=== PATIENT | female | born 1995 | race Caucasian/White ===

== ENCOUNTER 2024-03-21 07:12 | Outpatient (OUT) | payer MEDICAID, SELFPAY | END 2024-03-21 07:13 | disposition home or self-care (01) | LOC: PST 07:12 | PROVIDERS: Visit Provider Surgery | DX: Z01.818 Encounter for other preprocedural examination (principal); Z12.11 Encounter for screening for malignant neoplasm of colon ==

== ENCOUNTER 2024-03-29 06:53 | Day surgery (SDC) | payer MEDICAID, SELFPAY ==
--- OUTSIDE RECORDS SUMMARY | 2024-03-29 06:56 | XMS_ITS | CCD ---
Author Organization [facility] Care Team Providers Care Engineering Instructor Name Role Phone Ofelia Cosby Primary Care Provider HARJEET, DR BENSON Primary Care Unavailable WALTER, DR ROBLES Attending Unavailable WALTER, DR ROBLES Consulting Unavailable WALTER, DR ROBLES Admitting Unavailable HARJEET, DR BENSON Referring Unavailable MILDRED DONALDSON Consulting Unavailable PROSPER PHAM Admitting Unavailable HARJEET, DR BENSON Primary Care Unavailable PROSPER PHAM Attending Unavailable PROSPER PHAM Consulting Unavailable Ofelia Cosby MD Primary Care Provider [phone] Ofelia Cosby MD Primary Care Provider TAMIA WADDELL Attending Unavailable OFELIA COSBY Primary Care Unavailable OFELIA COSBY Primary Care Unavailable SIDNEY MORFIN Attending Unavailable MANUEL COX Attending Unavailab OFELIA Miguel Primary Care Unavailable OFELIA COSBY Attending Unavailable PROSPER PHAM Attending Unavailable PROSPER PHAM Attending Unavailable JULIA KELLY Attending Unavailable Allergies Allergy Classification Reported Allergen(s) Allergy Type Date of Onset Reaction(s) Facility Penicillins (antibiotic) (2 sources) Amoxicillin Drug Allergy 3 [facility] (4 sources) Amoxicillin Drug Allergy 3 [place] (2 sources) Penicillins Propensity to adverse reactions to drug 3 [place] (1 source) Amoxicillin Drug Allergy 3 [facility] (1 source) Amoxicillin / Clavulanate Drug Allergy 3 [facility] (1 source) Penicillins Drug allergy (disorder) 3 [facility] (2 sources) Penicillins Propensity to adverse reactions to drug 3 [facility] [employer] Work Phone: (1 source) Amoxicillin-Pot Clavulanate Propensity to adverse reactions to drug 3 [facility] Medications Current Medications Medication Drug Class(es) Dates Sig (Normalized) Sig (Original) escitalopram 20 mg oral tablet (2 sources) Serotonin Reuptake Inhibitor take 1 tablet by mouth once daily escitalopram (LEXAPRO) 20 MG tablet Take 1 tablet by mouth daily 0 Active hydrOXYzine hydrochloride 25 mg oral tablet (1 source) Antihistamine Start: 06-23-2023 End: 07-03-2023 take 1 tablet by mouth every eight hours as needed hydrOXYzine HCl (ATARAX) 25 MG tablet Take 1 tablet by mouth every 8 hours as needed for Itching 20 tablet 0 06/23/2023 07/03/2023 Active ibuprofen 600 mg oral tablet (2 sources) Nonsteroidal Anti-inflammatory Drug Start: 03-02-2023 take 1 tablet by mouth every six hours as needed for pain ibuprofen (IBU) 600 MG tablet Take 1 tablet by mouth every 6 hours as needed for Pain 120 tablet 0 03/02/2023 Active lithium carbonate 300 mg oral capsule (4 sources) take 1 capsule by mouth twice daily lithium 300 MG capsule Take 1 capsule by mouth 2 times daily Morning and Noon 0 Active take 1 capsule by mouth once rachel ly lithium 150 MG capsule Take 1 capsule by mouth nightly 0 Active naproxen 500 mg oral tablet (5 sources) Nonsteroidal Anti-inflammatory Drug Start: 01-24-2015 take 1 tablet by mouth twice daily naproxen (NAPROSYN) 500 MG tablet Take 1 tablet by mouth 2 times daily. 10 tablet 0 01/24/2015 Active Completed/Discontinued Medications Medication Drug Class(es) Dates Sig (Normalized) Sig (Original) 1 ml ketorolac tromethamine 30 mg/ml cartridge (1 source) Nonsteroidal Anti-inflammatory Drug, Cyclooxygenase Inhibitor Start: 03-02-2023 End: 03-02-2023 ketorolac (TORADOL) injection 30 mg Start: 03-02-2023 End: 03-02-2023 ketorolac (TORADOL) injectio n 30 mg Problems Active Problems Problem Classification Problem Date Documented Da te Episodic/Chronic Allergic reactions (2 sources) Contact dermatitis due to Genus Toxicodendron; Translations: [Unspecified contact dermatitis due to plants, except food] Onset: 06-23-2023 Episodic Other lower respiratory disease (4 sources) Shortness of breath; Translations: [SHORTNESS OF BREATH] Onset: 04-08-2022 Episodic Other lower respiratory disease (1 source) Chronic cough; Translations: [CHRONIC COUGH] Onset: 2022 Episodic Past or Other Problems Problem Classification Problem Date Documented Date Episodic/Chronic Immunizations and screening for infectious disease (1 source) Encounter for screening for human papillomavirus (HPV); Translations: [ENC SCREENING HUMAN PAPILLOMAVIRUS] Onset: 12-05-2021 Episodic Open wounds of extremities (3 sources) Laceration without foreign body of right hand, initial encounter; Translations: [Laceration of other specified muscles, fascia and tendons at wrist and hand level, right hand, initial encounter] Onset: 11-01-2022 Episodic Other screening for suspected conditions (not mental disorders or infectious disease) (4 sources) Encounter for screening for malignant neoplasm of cervix; Translations: [ENC SCREENING MALIG NEOPLASM CERV] Onset: 12-02-2021 Episodic Other upper respiratory infections (2 sources) Viral pharyngitis; Translations: [Acute pharyngitis, unspecified] Onset: 03-02-2023 Episodic Results Test Name Value Interpretation Reference Range Facility Strep Gr A Direct Agon 03-02 Strep Gr A Direct Ag Negative Normal [facility]G [facility] Comment on above: Result Comment: Rapi d Strep A negative. A negative Rapid Group A Strep Screen result does not rule out the possibility of Group A Streptococci in the specimen. A Group A Strep DNA test is available upon request. Performed By: #### R GPA #### [facility] [address] [place] [address] [place] [address] Aeronautical Inspector: Xavier Olivas MD Source .THROAT SWAB Normal [facility] Comment on above: Performed By: #### R GPA #### [facility] [address] [place] [address] [place] [address] Aeronautical Inspector: Xavier Olivas MD Strep Screen Group A Throato n 03-02-2023 S. pyogenes Ag Ql (Throat) Negative NEGATIVE [facility] Comment on above: Rapid Strep A negati ve. A negative Rapid Group A Strep Screen result does not rule out the possibility of Group A Streptococci in the specimen. A Group A Strep DNA test is available upon request. Source .THROAT SWAB [facility] XR HAND RIGHT (MIN 3 VIEWS)o n 11-01-2022 XR HAND RIGHT (MIN 3 VIEWS) EXAMINATION: THREE XRAY VIEWS OF THE RIGHT HAND 10/31/2022 11:07 pm COMPARISON: 01/24/2015 HISTORY: ORDERING SYSTEM PROVIDED HISTORY: FB evaluation TECHNOLOGIST PROVIDED HISTORY: FB evaluation FINDINGS: No acute fracture. No dislocation. Joint spaces are maintained. There is no radiopaque foreign object. IMPRESSION: No acute osseous abnormality. No radiopaque foreign object. Interpreted by: Cass Brito MD Signed by: Cass Brito MD 10/31/22 Final result Normal [facility] XR CHEST 2 Von 04-08-2022 XR CHEST 2 V EXAM: XR CHEST 2 V HISTORY: Dyspnea EXAM: XR CHEST 2 V INDICATION: 26 years old Female Dyspnea COMPARISON: None. FINDINGS: The cardiac silhouette is normal. There is no pulmonary edema. The lungs are clear. There is no pneumonia. There is no pneumothorax. There is no abnormal foreign body. IMPRESSION: There is no acute abnormality. Electronically authenticated by: MILDRED DONALDSON Date: 2022-04-08 11:33 [facility] PAP ACOG PANEL 2: 20 to 29on 12-05-2021 . . Normal [facility] Comment on above: Performed By: #### [id number] #### [facility] [address] [address] [address] Annabel Ramirez Age Gdln ACOG Testing - Normal [facility] Comment on above: Performed By: #### 4 [id number] #### [facility] [address] [place], [place] [address] Dr. Annabel Ramirez DIAGNOSIS: Comment Normal [facility] Comment on above: Result Comment: NEGA TIVE FOR INTRAEPITHELIAL LESION OR MALIGNANCY. CELLULAR CHANGES ASSOCIATED WITH INFLAMMATION ARE PRESENT. Performed By: #### 4 [id number] #### [facility] [address] [address] [address] Annabel Ramirez Methodology: Comment Normal [facility] Comment on above: Result Comment: This liquid based ThinPrep(R) pap test was screened with the use of an image guided system. Performed By: #### 4 [id number] #### [facility] [address] [place] [address] Dr. Annabel Ramirez Note: Comment Normal [facility] Comment on above: Result Comment: The Pap smear is a screening test designed to aid in the detection of premalignant and malignant conditions of the uterine cervix. It is not a diagnostic procedure and should not be used as the sole means of detecting cervical cancer. Both false-positive and false-negative reports do occur. . Performed By: #### 4 [id number] #### [facility] [address] [place] [address] Dr. Annabel Ramirez Performed by: Comment Normal [facility] Comment on above: Result Comment: Gregorio Lord, Cuff Stitcher (ASCP) Performed By: #### 4 [id number] #### [facility] [address] [place] [address] Dr. Annabel Ramirez Reflex Criteria: Comment Normal [facility] Comment on above: Result Comment: The HPV DNA reflex criteria were not met with this specimen result therefore, no HPV testing was performed. . Performed By: #### 4 [id number] #### [facility] [address] [place] [address] Dr. Annabel Ramirez Specimen adequacy: Comment Normal [facility] Comment on above: Result Comment: Sati sfactory for evaluation. Endocervical and/or squamous metaplastic cells (endocervical component) are present. Performed By: #### 4 [id number] #### [facility] [address] [place] [address] Dr. Annabel Ramirez Q - CBC W/DIFF AND PLTon BASOABS 93 cells/uL Normal 0-200 [facility] [employer] [facility] Comment on above: Order Comment: [facility] Testing performed at: [facility] [place] [facility], [address] [place] [address], [address] [place] [address], [place], [address], [employer] Final Inspector: Chris Skinner MD [facility] Date/Time: [facility] Results Received Date/Time: [facility] Reported Date/Time: Performed By: #### 3 [id number], 42A, 613, [id number] #### [facility] Default [address] [place] [address] Basophils/100 WBC (Bld) 0.8 % Normal [facility] Comment on above: Order Comment: [facility] performed at: [employer] [employer] [facility], [address] , [address] [place] [address], [address] [place] [address], [employer] Final Inspector: Chris Skinner MD [facility] Date/Time: [facility] Results Received Date/Time: [facility] Reported Date/Time: Performed By: #### 3 [id number], 42A, 613, [id number] #### [facility] [address] [place] [address] EOSABS 754 cells/uL High 15-500 [facility] Comment on above: Order Comment: [facility] performed at: [facility], [address] , [address] [place] [address], [address] [place] [address], [employer] Final Inspector: Chris Skinner MD [facility] Date/Time: [facility] Results Received Date/Time: [facility] Reported Date/Time: Performed By: #### 3 [id number], 42A, 613, [id number] #### [facility] [address] [place] [address] Eosinophils/100 WBC (Bld) 6.5 % Normal [facility] Comment on above: Order Comment: [facility] performed at: [employer] [employer] [facility], [address] , [address] [place] [address], [address] [place] [address], [employer] Final Inspector: Chris Skinner MD [facility] Date/Time: [facility] Results Received Date/Time: [facility] Reported Date/Time: Performed By: #### 3 6127, 42A, 613, [id number] #### [facility] Default [address] [place] [address] Erythrocyte distribution width (RBC) [Ratio] 12.5 % Normal 11.0-15.0 [facility] Comment on above: Order Comment: [facility] performed at: [employer] [employer] [facility], [address] [facility], [address] [place] [address], [address] [place] [address], [employer] Final Inspector: Chris Skinner MD [facility] Date/Time: [facility] Results Received Date/Time: [facility] Reported Date/Time: Performed By: #### 3 6127, 42A, 613, [id number] #### [facility] Default [address] [place] [address] Hematocrit (Bld) [Volume fraction] 43.6 % Normal 35.0-45.0 [facility] Comment on above: Order Comment: [facility] performed at: [employer] [employer] [facility], [facility], [address] [place] [address], [address] [place] [address], [employer] Final Inspector: Chris Skinner MD [facility] Date/Time: [facility] Results Received Date/Time: [facility] Reported Date/Time: Performed By: #### 3 [id number], 42A, 613, [id number] #### [facility] [address] [place] [address] Hemoglobin (Bld) [Mass/Vol] 14.8 g/dL Normal 11.7-15.5 [facility] Comment on above: Order Comment: [facility] performed at: [employer] [employer] [facility], [facility], [address] [place] [address], [address] [place] [address], [employer] Final Inspector: Chris Skinner MD [facility] Date/Time: [facility] Results Received Date/Time: [facility] Reported Date/Time: Performed By: #### 3 6127, 42A, 613, [id number] #### [facility] [address] [place] [address] Lymphocytes (Bld) [#/Vol] 3.48 10*3/uL Normal 850-3900 [facility] Comment on above: Order Comment: [facility] performed at: [facility] [employer] [facility], [address] [place] [address], [address] [place] [address], [address] [place] [address], [employer] Final Inspector: Chris Skinner MD [facility] Date/Time: [facility] Results Received Date/Time: [facility] Reported Date/Time: Performed By: #### 3 6127, 42A, 613, [id number] #### [facility] [address] [place] [address] Lymphocytes/100 WBC (Bld) 30.0 % Normal [facility] [employer] [facility] Comment on above: Order Comment: [facility] performed at: [facility] [place] [employer] [facility], [address] [place] [address], [address] [place] [address], [address] [place] [address], [employer] Final Inspector: Chris Skinner MD [facility] Date/Time: [facility] Results Received Date/Time: [facility] Reported Date/Time: Performed By: #### 3 [id number], 42A, 613, [id number] #### [facility] [address] [place] [address] MCH (RBC) [Entitic mass] 30.0 pg Normal 27.0-33.0 [facility] Comment on above: Order Comment: [facility] performed at: [facility] [employer] [facility], [address] [place] [address], [address] [place] [address], [address] [place] [address], [employer] Final Inspector: Chris Skinner MD [facility] Date/Time: [facility] Results Received Date/Time: [facility] Reported Date/Time: Performed By: #### 3 6127, 42A, 613, [id number] #### [facility] [address] [place] [address] MCHC (RBC) [Mass/Vol] 33.9 g/dL Normal 32.0-36.0 [facility] [place] [facility] Comment on above: Order Comment: [facility] performed at: [employer] [employer] [facility], [address] [place] [address], [address] [place] [address], [address] [place] [address], [employer] Final Inspector: Chris Skinner MD [facility] Date/Time: [facility] Results Received Date/Time: [facility] Reported Date/Time: Performed By: #### 3 6127, 42A, 613, [id number] #### [facility] [address] [place] [address] MCV (RBC) [Entitic vol] 88.3 fL Normal 80.0-100.0 [facility] Comment on above: Order Comment: [facility] performed at: [employer] [employer] [facility], [address] [place] [address], [address] [place] [address], [address] [place] [address], [employer] Final Inspector: Chris Skinner MD [facility] Date/Time: [facility] Results Received Date/Time: [facility] Reported Date/Time: Performed By: #### 3 6127, 42A, 613, [id number] #### [facility] [address] [place] [address] MONOABS 905 cells/uL Normal 200-950 [facility] Comment on above: Order Comment: [facility] performed at: [facility], [address] [facility], [address] [place] [address], [address] [place] [address], [employer] Final Inspector: Chris Skinner MD [facility] Date/Time: [facility] Results Received Date/Time: [facility] Reported Date/Time: Performed By: #### 3 6127, 42A, 613, [id number] #### [facility] [address] [place] [address] Monocytes/100 WBC (Bld) 7.8 % Normal [facility] Comment on above: Order Comment: [facility] performed at: [facility], [address] [facility], [address] [place] [address], [address] [place] [address], [employer] Final Inspector: Chris Skinner MD [facility] Date/Time: [facility] Results Received Date/Time: [facility] Reported Date/Time: Performed By: #### 3 6127, 42A, 613, [id number] #### [facility] [address] [place] [address] Neutrophils (Bld) [#/Vol] 6.368 10*3/uL Normal 3200-2159 [facility] [employer] [facility] Comment on above: Order Comment: [facility] performed at: [employer] [employer] [facility], [address] [place] [address], [address] [place] [address], [address] [place] [address], [employer] Final Inspector: Chris Skinner MD [facility] Date/Time: [facility] Results Received Date/Time: [facility] Reported Date/Time: Performed By: #### 3 6127, 42A, 613, [id number] #### [facility] [address] [place] [address] Neutrophils/100 WBC (Bld) 54.9 % Normal [facility] [employer] [facility] Comment on above: Order Comment: [facility] performed at: [employer] [employer] [facility], [address] [place] [address], [address] [place] [address], [address] [place] [address], [employer] Final Inspector: Chris Skinner MD [facility] Date/Time: [facility] Results Received Date/Time: [facility] Reported Date/Time: Performed By: #### 3 6127, 42A, 613, [id number] #### [facility] [address] [place] [address] Platelet mean volume (Bld) [Entitic vol] 10.6 fL Normal 7.5-12.5 [facility] [employer] [facility] Comment on above: Order Comment: [facility] performed at: [employer] [employer] [facility], [address] [place] [address], [address] [place] [address], [address] [place] [address], [employer] Final Inspector: Chris Skinner MD [facility] Date/Time: [facility] Results Received Date/Time: [facility] Reported Date/Time: Performed By: #### 3 6127, 42A, 613, [id number] #### [facility] Default [address] [place] [address] Platelets (Bld) [#/Vol] 373 10*3/uL Normal 140-400 [facility] Comment on above: Order Comment: [facility] performed at: [employer] [employer] [facility], [address] [facility], [address] [place] [address], [address] [place] [address], [employer] Final Inspector: Chris Skinner MD [facility] Date/Time: [facility] Results Received Date/Time: [facility] Reported Date/Time: Performed By: #### 3 6127, 42A, 613, [id number] #### [facility] [address] [place] [address] RBC (Bld) [#/Vol] 4.94 10*6/uL Normal 3.80-5.10 [facility] Comment on above: Order Comment: [facility] performed at: [employer] [employer] [facility], [address] , [address] [place] [address], [address] [place] [address], [employer] Final Inspector: Chris Skinner MD [facility] Date/Time: [facility] Results Received Date/Time: [facility] Reported Date/Time: Performed By: #### 3 6127, 42A, 613, [id number] #### [facility] [address] [place] [address] WBC (Bld) [#/Vol] 11.6 10*3/uL High 3.8-10.8 [facility] Comment on above: Order Comment: [facility] performed at: [employer] [employer] [facility], [address] , [address] [place] [address], [address] [place] [address], [employer] Final Inspector: Chris Skinner MD [facility] Date/Time: [facility] Results Received Date/Time: [facility] Reported Date/Time: Performed By: #### 3 6127, 42A, 613, [id number] #### [facility] Default [address] [place] [address] Q - COMPREHENSIVE METABOLIC PANEL W/EGFRon 10-25-2021 Albumin [Mass/Vol] 4.2 g/dL Normal 3.6-5.1 [facility] Comment on above: Order Comment: [facility] performed at: [employer] [employer] [facility], [address] [place] [address], [address] [place] [address], [address] [place] [address], [employer] Final Inspector: Chris Skinner MD [facility] Date/Time: [facility] Results Received Date/Time: [facility] Reported Date/Time: Performed By: #### 3 6127, 42A, 613, [id number] #### [facility] Default [address] [place] [address] Albumin/Globulin [Mass ratio] 1.6 {ratio} Normal 1.0-2.5 [facility] [employer] [facility] Comment on above: Order Comment: [facility] performed at: [employer] [employer] [facility], [address] [place] [address], [address] [place] [address], [address] [place] [address], [employer] Final Inspector: Chris Skinner MD [facility] Date/Time: [facility] Results Received Date/Time: [facility] Reported Date/Time: Performed By: #### 3 6127, 42A, 613, [id number] #### [facility] [address] [place] [address] ALP [Catalytic activity/Vol] 68 U/L Normal 31-125 [facility] [employer] [facility] Comment on above: Order Comment: [facility] performed at: [employer] [employer] [facility], [address] [place] [address], [address] [place] [address], [address] [place] [address], [employer] Final Inspector: Chris Skinner MD [facility] Date/Time: [facility] Results Received Date/Time: [facility] Reported Date/Time: Performed By: #### 3 6127, 42A, 613, [id number] #### [facility] Default [address] [place] [address] ALT [Catalytic activity/Vol] 27 U/L Normal 6-29 [facility] Comment on above: Order Comment: [facility] performed at: [employer] [employer] [facility], [address] [place] [address], [address] [place] [address], [address] [place] [address], [employer] Final Inspector: Chris Skinner MD [facility] Date/Time: [facility] Results Received Date/Time: [facility] Reported Date/Time: Performed By: #### 3 6127, 42A, 613, [id number] #### [facility] Default [address] [place] [address] AST [Catalytic activity/Vol] 19 U/L Normal 10-30 [facility] Comment on above: Order Comment: [facility] performed at: [facility], [address] [place] [address], [address] [place] [address], [address] [place] [address], [employer] Final Inspector: Chris Skinner MD [facility] Date/Time: [facility] Results Received Date/Time: [facility] Reported Date/Time: Performed By: #### 3 [id number], 42A, 613, [id number] #### [facility] Default [address] [place] [address] Bilirubin [Mass/Vol] 0.5 mg/dL Normal 0.2-1.2 [facility] Comment on above: Order Comment: [facility] Testing performed at: [facility], [address] [place] [address], [address] [place] [address], [address] [place] [address], [employer] Final Inspector: Chris Skinner MD [facility] Collection Date/Time: [facility] Results Received Date/Time: [facility] Reported Date/Time: Performed By: #### 3 6127, 42A, 613, [id number] #### [facility] Default [address] [place] [address] BUN/CREA 13 NOT APPLICABLE Normal 6-22 Vincent n [place] [employer] Comment on above: Order Comment: [facility] Testing performed at: [employer] [facility], [address] , [address] [place] [address], [address] [place] [address], [employer] Final Inspector: Chris Skinner MD [facility] Collection Date/Time: [facility] Results Received Date/Time: [facility] Reported Date/Time: Performed By: #### 3 6127, 42A, 613, [id number] #### [facility] Default [address] [place] [address] Calcium [Mass/Vol] 9.1 mg/dL Normal 8.6-10.2 [facility] [employer] Comment on above: Order Comment: [facility] Testing performed at: [employer] [facility], [address] , [address] [place] [address], [address] [place] [address], [employer] Final Inspector: Chris Skinner MD [facility] Collection Date/Time: [facility] Results Received Date/Time: [facility] Reported Date/Time: Performed By: #### 3 6127, 42A, 613, [id number] #### [facility] Default [address] [place] [address] Chloride [Moles/Vol] 106 mmol/L Normal 98-110 [facility] [place] [employer] Comment on above: Order Comment: [facility] Testing performed at: [employer] [facility], [address] , [address] [place] [address], [address] [place] [address], [employer] Final Inspector: Chris Skinner MD [facility] Collection Date/Time: [facility] Results Received Date/Time: [facility] Reported Date/Time: Performed By: #### 3 6127, 42A, 613, [id number] #### [facility] Default [address] [place] [address] CO2 [Moles/Vol] 23 mmol/L Normal 20-32 [facility] Comment on above: Order Comment: [facility] Testing performed at: [employer] [facility], [address] [place] [address], [address] [place] [address], [address] [place] [address], [employer] Final Inspector: Chris Skinner MD [facility] Collection Date/Time: [facility] Results Received Date/Time: [facility] Reported Date/Time: Performed By: #### 3 6127, 42A, 613, [id number] #### [facility] Default [address] [place] [address] Creatinine [Mass/Vol] 0.60 mg/dL Normal 0.50-1.10 [facility] Comment on above: Order Comment: [facility] Testing performed at: [employer] [facility], [address] [place] [address], [address] [place] [address], [address] [place] [address], [employer] Final Inspector: Chris Skinner MD [facility] Collection Date/Time: [facility] Results Received Date/Time: [facility] Reported Date/Time: Performed By: #### 3 6127, 42A, 613, [id number] #### [facility] Default [address] [place] [address] eGFRAA 145 mL/min/1.73m2 Normal > OR = 60 [facility] Specialist Comment on above: Order Comment: [facility] Testing performed at: [employer] [facility], [address] [place] [address], [address] [place] [address], [address] [place] [address], [employer] Final Inspector: Chris Skinner MD [facility] Collection Date/Time: [facility] Results Received Date/Time: [facility] Reported Date/Time: Performed By: #### 3 6127, 42A, 613, [id number] #### [facility] Default [address] [place] [address] eGFRNAA 120 mL/min/1.73m2 Normal > OR = 60 [facility] [employer] Comment on above: Order Comment: [facility] Testing performed at: [employer] [facility], [address] [place] [address], [address] [place] [address], [address] [place] [address], [employer] Final Inspector: Chris Skinner MD [facility] Collection Date/Time: [facility] Results Received Date/Time: [facility] Reported Date/Time: Performed By: #### 3 6127, 42A, 613, [id number] #### [facility] Default [address] [place] [address] Globulin (S) [Mass/Vol] 2.6 g/dL Normal 1.9-3.7 N [facility] Specialist Comment on above: Order Comment: [facility] Testing performed at: [employer] [facility], [address] [place] [address], [address] [place] [address], [address] [place] [address], [employer] Final Inspector: Chris Skinner MD [facility] Collection Date/Time: [facility] Results Received Date/Time: [facility] Reported Date/Time: Performed By: #### 3 6127, 42A, 613, [id number] #### [facility] Default [address] [place] [address] Glucose [Mass/Vol] 82 mg/dL Normal 65-99 [facility] Specialist Comment on above: Order Comment: [facility] Testing performed at: [employer] [facility], [address] [place] [address], [address] [place] [address], [address] [place] [address], [employer] Final Inspector: Chris Skinner MD [facility] Collection Date/Time: [facility] Results Received Date/Time: [facility] Reported Date/Time: Result Comment: Fasting reference interval Performed By: #### 3 6127, 42A, 613, [id number] #### [facility] Default [address] [place] [address] Potassium [Moles/Vol] 4.0 mmol/L Normal 3.5-5.3 [facility] [employer] Comment on above: Order Comment: [facility] performed at: [employer] [facility], [address] [place] [address], [address] [place] [address], [address] [place] [address], [employer] Final Inspector: Chris Skinner MD [facility] Collection Date/Time: [facility] Results Received Date/Time: [facility] Reported Date/Time: Performed By: #### 3 6127, 42A, 613, [id number] #### [facility] Default [address] [place] [address] Protein [Mass/Vol] 6.8 g/dL Normal 6.1-8.1 Seb rn [place] [employer] Comment on above: Order Comment: [facility] performed at: [employer] [facility], [address] [place] [address], [address] [place] [address], [address] [place] [address], [employer] Final Inspector: Chris Skinner MD [facility] Date/Time: [facility] Results Received Date/Time: [facility] Reported Date/Time: Performed By: #### 3 6127, 42A, 613, [id number] #### [facility] Default [address] [place] [address] Sodium [Moles/Vol] 137 mmol/L Normal 135-146 Seb rn [place] [employer] Comment on above: Order Comment: [facility] performed at: [employer] [facility], [address] [place] [address], [address] [place] [address], [address] [place] [address], [employer] Final Inspector: Chris Skinner MD [facility] Date/Time: [facility] Results Received Date/Time: [facility] Reported Date/Time: Performed By: #### 3 6127, 42A, 613, [id number] #### [facility] Default [address] [place] [address] Urea nitrogen [Mass/Vol] 8 mg/dL Normal 7-25 [facility] [employer] Comment on above: Order Comment: [facility] performed at: [employer] [facility], [address] [place] [address], [address] [place] [address], [address] [place] [address], [employer] Final Inspector: Chris Skinner MD [facility] Collection Date/Time: [facility] Results Received Date/Time: [facility] Reported Date/Time: Performed By: #### 3 6127, 42A, 613, [id number] #### [facility] Default [address] [place] [address] Q - LITHIUM,SERUMon 10-25-19 22 [place] [Moles/Vol] mmol/L Low 0.6-1.2 [facility] Comment on above: Order Comment: [facility] Testing performed at: [employer] [facility], [address] [place] [address], [address] [place] [address], [address] [place] [address], [employer] Final Inspector: Chris Skinner MD [facility] Collection Date/Time: [facility] Results Received Date/Time: [facility] Reported Date/Time: Result Comment: Veri fied by repeat analysis. Performed By: #### 3 6127, 42A, 613, [id number] #### [facility] Default [address] [place] [address] Q - TSH WITH REFLEX TO FREE T4on 10-25-2021 TSH W/REFLEX TO FT4 1.91 mIU/L Normal [facility] Comment on above: Order Comment: [facility] performed at: [employer] [facility], [address] [place] [address], [address] [place] [address], [address] [place] [address], [employer] Final Inspector: Chris Skinner MD [facility] Collection Date/Time: [facility] Results Received Date/Time: [facility] Reported Date/Time: Result Comment: Refe rence Range > or = 20 Years 0.40-4.50 Ranges First trimester 0.26-2.66 Second trimester 0.55-2.73 Third trimester 0.43-2.91 Performed By: #### 3 6127, 42A, 613, [id number] #### [facility] Default [address] [place] [address] Miles 07-17-2021 L Specimen: Received: 07/17/21 Status: BAILEY Reynaga Num: [id number] Spec Type: Surgical Subm Dr: Jakob Peraza MD Tissues: A Colon - Polyp (SIGMOID COLON POLYP) Procedures: HE Stain/2, Gross/Micro L4 Patient Age/Sex Location Account Attending Physician Sandra Dmoinique 26/F [id number] Jakob Peraza MD SPEC NUM: [id number] RECD: 07/17/21 STATUS: BAILEY REYNAGA NUM: [id number] SONIA: 07/17/21- SUBM DR: Jakob Peraza MD ENTERED: 07/17/21 [facility] DR: SPEC TYPE: Surgical DEPT: S ENTERED BY: [id number] RECV BY: [id number] ORDERED: HE Stain/2, Gross/Micro L4 ORDERED: HE Stain/2, Gross/Micro L4 Pathological Diagnosis Sigmoid colon, biopsy: - Tubular adenoma Clinical Information Abdominal pain, rectal bleeding Gross Description Received in formalin labeled with the patient's name, number and sigmoid colon polyp is a slightly pedunculated red, lobulated mucosal polyp with a 0.3 cm in length x 0.4 cm in diameter stalk and a 0.7 x 0.6 x 0.5 cm mucosal head. The resection margin is inked blue and the fragment is bisected. Entirely submitted in one cassette labeled A1. (SM/JS) Microscopic Description Two glass slides with H E stained material have been examined. The microscopic findings support the above pathologic diagnosis. [id number] Specimen: [id number] Received: 07/17/21 Status: [place] Req Num: [id number] Spec Type: Surgical Subm Dr: Jakob Peraza MD Tissues: A Colon - Polyp (SIGMOID COLON POLYP) Procedures: HE Stain/2, Gross/Micro L4 Patient: Sandra Dominique [id number] (Continued) Signed (signature on file) Jimbo Wilkins MD 07/18/21 1839 [facility] COVID-19 Antigenon COVID-19 Antigen Healthcare Worker?: N Dez Reference Dez Reference Negative SARS-CoV+SARS-CoV-2 (COVID-19) Ag [Presence] in Respiratory specimen by Rapid immunoassay Negative for SARS Antigen by SAMY COVID19 Blank Space Dez Disclaimer Negative results, from patients with symptom Dez Disclaimer onset beyond five days, should be treated as Dez Disclaimer presumptive and confirmation with a molecular Dez Disclaimer assay, if necessary, for patient management, Dez Disclaimer may be performed. Negative results do not rule Dez Disclaimer out COVID-19 and should not be used as the sole Dez Disclaimer basis for treatment or patient management Dez Disclaimer decisions, including infection control decisions. Dez Disclaimer Negative results should be considered in the Dez Disclaimer context of a patient's recent exposures, history Dez Disclaimer and the presence of clinical signs and symptoms Dez Disclaimer consistent with COVID-19. COVID19 Blank Space Dez Disclaimer The Dez SARS Antigen SAMY does not differentiate Dez Disclaimer between SARS-CoV and SARS-CoV-2. COVID19 Blank Space Dez Disclaimer This test was developed and its performance Dez Disclaimer characteristic determined by [employer] and Dez Disclaimer validated at [facility]. This Dez Disclaimer test has not been FDA cleared or approved. This Dez Disclaimer test has been authorized by FDA under an Emergency Use Dez Disclaimer Authorization (EUA). This test has been validated Dez Disclaimer in accordance with the FDA's Guidance Document (Policy Dez Disclaimer for Diagnostics Testing in Laboratories Certified to Dez Disclaimer Perform High Complexity Testing under CLIA prior to Dez Disclaimer Emergency Use Authorization for Coronavirus Dez Disclaimer is during the Public Health Emergency) Dez Disclaimer issued on January 19, 2020. This test is only authorized Dez Disclaimer for the duration of time the declaration that Dez Disclaimer circumstances exist justifying the authorization of Dez Disclaimer the emergency use of in vitro diagnostic tests for Dez Disclaimer detection of SARS-CoV-2 virus and/or diagnosis of Dez Disclaimer COVID-19 infection under section 564(b)(1) of the Dez Disclaimer Act, 21 U.S.C. 360bbb-3(b)(1), unless the Dez Disclaimer authorization is terminated or revoked sooner. PERFORMED BY: [facility] [place] [address] PATHOLOGIST HAUNTED HISTORY TOUR GUIDE JIMBO WILKINS M.D. [facility] Comment on above: Performed By: #### C OVID-19 DEZ, SOFIANEG #### [facility] [address] [id number] [facility] Dez Ag Negativeon 07-15-20 21 Dez Ag Negative Negative Normal Negative [facility] Comment on above: Result Comment: This is a duplicate Dez SARS Antigen (SAMY) result to be used for statistical tracking purpose only. PERFORMED BY: [facility] [address] [place] [address] PATHOLOGIST HAUNTED HISTORY TOUR GUIDE JIMBO WILKINS M.D. Performed By: #### C OVID-19 DEZ, SOFIANEG #### [facility] [address] Electrolyte PanelOrdered By: Karan Okeefe on 04-24-2021 Anion gap [Moles/Vol] 11 mmol/L 9 - 17 mmol/L [employer] Phone: Chloride [Moles/Vol] 100 mmol/L 98 - 10 7 mmol/L [employer] Phone: CO2 [Moles/Vol] 27 mmol/L 20 - 31 mmol/L [employer] Phone: Potassium [Moles/Vol] 3.9 mmol/L 3.7 - 5.3 mmol/L [employer] Phone: Sodium [Moles/Vol] 138 mmol/L 135 - 144 mmol/L [employer] Phone: [place] LevelOrdered By: Wally Okeefe on 04-24-2021 Interpretation and review of laboratory results Abnormal [employer] Work Phone: [place] Date Last Dose NOT REPORTED [facility] Work Phone: [place] Dose Amount NOT REPORTED [facility] [employer] Work Phone: [place] Dose Time NOT REPORTED [facility]: [place] Lvl 0.3 mmol/L Low 0.6 - 1.2 mmol/L [employer] Phone: [employer] Work Phone: No Panel InformationOrdered By: Karan Okeefe on 04-24-2021 [facility] Phone: TSH without ReflexOrdered By : Karan Okeefe on 04-24-2021 Interpretation and review of laboratory results Abnormal [facility] Phone: TSH Qn 9.65 m[IU]/L [facility] [employer] Phone: Basic Metabolic Panelon 07-20 Anion gap [Moles/Vol] 11 mmol/L 9 - 17 mmol/L [place], [place] Bun/Cre Ratio 20 [place], [place] Calcium [Mass/Vol] 9.2 mg/dL 8.6 - 10. 4 mg/dL [place] Chloride [Moles/Vol] 100 mmol/L 98 - 10 7 mmol/L [place] CO2 [Moles/Vol] 25 mmol/L 20 - 31 mmol/L [place] Creatinine [Mass/Vol] 0.61 mg/dL 0.5 - 0.9 mg/dL [place] GFR >60 >60 mL/min [place] GFR Non- >60 >60 mL/min [place] Glucose [Mass/Vol] 90 mg/dL 70 - 99 mg/dL [place], [place] Potassium [Moles/Vol] 4.0 mmol/L 3.7 - 5.3 mmol/L [place] Sodium [Moles/Vol] 136 mmol/L 135 - 144 mmol/L [place] Urea nitrogen [Mass/Vol] 12 mg/dL 6 - 20 mg/dL [place] CBC Auto Differentialon 07-20 Basophils (Bld) [#/Vol] 0.11 10*3/uL [place] Basophils/100 WBC (Bld) 1 % 0 - 2 % M [place], [place] Differential Type NOT REPORTED [place] Eosinophils (Bld) [#/Vol] 0.75 10*3/uL [place] Eosinophils/100 WBC (Bld) 5 % High 1 - 4 % [place] Erythrocyte distribution width (RBC) [Ratio] 12.4 % 11.8 - 14.4 % [place] Hematocrit (Bld) [Volume fraction] 47.0 % 36.3 - 47.1 % [place] Hemoglobin (Bld) [Mass/Vol] 15.2 g/dL High 11.9 - 15.1 g/dL [place] Immature granulocytes (Bld) [#/Vol] 1 % High 0 [place] Immature granulocytes (Bld) [#/Vol] 0.14 10*3/uL [place] Interpretation and review of laboratory results Abnormal [place] Lymphocytes (Bld) [#/Vol] 3.47 10*3/uL [place] Lymphocytes/100 WBC (Bld) 21 % Low 24 - 43 % [place] MCH (RBC) [Entitic mass] 29.0 pg 25.2 - 33.5 pg [place] MCHC (RBC) [Mass/Vol] 32.3 g/dL 28.4 - 34.8 g/dL [place] MCV (RBC) [Entitic vol] 89.7 fL 82.6 - 102.9 fL [place] Monocytes (Bld) [#/Vol] 1.09 10*3/uL [place] Monocytes/100 WBC (Bld) 7 % 3 - 12 % [place], [place] Platelet mean volume (Bld) [Entitic vol] 9.2 fL 8.1 - 13.5 fL [place], [place] Platelets (Bld) [#/Vol] 397 10*3/uL [place] Platelets (Bld) [#/Vol] NOT REPORTED [place] RBC (Bld) [#/Vol] 5.24 10*6/uL High 3.95 - 5.1 1 m/uL [place] RBC morphology finding Nom (Bld) NOT REPORTED [place] Segmented neutrophils/100 WBC (Bld) 65 % 36 - 65 % [place] Segs Absolute 10.97 [place], [place] WBC (Bld) [#/Vol] 16.5 10*3/uL [place] WBC (Bld) [#/Vol] 0.0 10*3/uL 0.0 per 10 0 WBC [place] WBC Morphology NOT REPORTED [place], [place] Hemoglobin A1Con 08-13-2020 Glucose [Mass/Vol] 97 mg/dL [place] Comment on above: The ADA and AACC rec ommend providing the estimated average glucose result to permit better patient understanding of their HBA1c result. HbA1c (Bld) [Mass fraction] 5.0 % 4 - 6 % [place] Lipid Panelon 08-13-2020 Cholesterol [Mass/Vol] 201 mg/dL High <200 [place], [place] Comment on above: Cholesterol Guidelines: <200 Desirable 200-240 Borderline >240 Undesirable Cholesterol in HDL [Mass/Vol] 35 mg/dL Low >40 [place] Comment on above: HDL Guidelines: <40 Undesirable 40-59 Borderline >59 Desirable Cholesterol in LDL [Mass/Vol] 117 mg/dL 0 - 130 mg/dL [place] Comment on above: LDL Guidelines: <100 Desirable 100-129 Near to/above Desirable 130-159 Borderline >159 Undesirable Direct (measured) LDL and calculated LDL are not interchangeable tests. Cholesterol in VLDL [Mass/Vol] NOT REPORTED High 1 - 30 mg/dL [place] Cholesterol.total/Mariama sterol in HDL [Mass ratio] 5.7 {ratio} High <5 [place] Interpretation and review of laboratory results Abnormal [place] Triglyceride [Mass/Vol] 244 mg/dL High <150 [place], [place] Comment on above: Triglyceride Guidelines: <150 Desirable 150-199 Borderline 200-499 High >499 Very high Based on AHA Guidelines for fasting triglyceride, July 2012. [place] Levelon 08-13-2020 [place] Date Last Dose NOT REPORTED [place] Dose Amount NOT REPORTED [place] Dose Time NOT REPORTED [place] Lvl 0.7 mmol/L 0.6 - 1.2 mmol/L [place] Metabolic Panelon 08-13-2020 GFR/1.73 sq M predicted among non-blacks MDRD (S/P/Bld) [Vol rate/Area] [place] Comment on above: Average GFR for 20-2 9 years old: 116 mL/min/1.73sq m Chronic Kidney Disease: <60 mL/min/1.73sq m Kidney failure: <15 mL/min/1.73sq m eGFR calculated using average adult body mass. Additional eGFR calculator available at: http://www.[employer]/multiple_crcl_2012.htm Stage 1: Some kidney damage normal GFR Stage 2: Mild kidney damage GFR 60-89 Stage 3: Moderate kidney damage GFR 30-59 Stage 4: Severe kidney damage GFR 15-29 Stage 5: Severe kidney damage GFR <15 ESRD - chronic treatment by dialysis or transplant [place] Levelon 12-07-2019 Interpretation and review of laboratory results Abnormal [place] Date Last Dose NOT REPORTED [place] Dose Amount NOT REPORTED [place] Dose Time NOT REPORTED [place] Lvl 0.4 mmol/L Low 0.6 - 1.2 mmol/L [place] Vital Signs Date Time Vital Sign Value Performing Clinician Faci lity 06-23-2023 08:25-0400 Body temperature 97.5 [degF] Tamia Waddell MD Work Phone: [facility] [employer] 06-23-2023 08:25-0400 Diastolic blood pressure 78 mm[Hg] Tamia Waddell MD Work Phone: [facility] [employer] 06-23-2023 08:25-0400 Heart rate 60 /min Tamia Waddell MD Work Phone: [facility] [employer] 06-23-2023 08:25-0400 Respiratory rate 13 /min Tamia Waddell MD Work Phone: [facility] [employer] 06-23-2023 08:25-0400 SaO2% (BldA) [Mass fraction] 98 % Tamia Waddell MD Work Phone: [facility] [employer] [facility] 06-23-2023 08:25-0400 Systolic blood pressure 132 mm[Hg] Tamia Waddell MD Work Phone: [facility] 03-02-2023 10:10-0400 Diastolic blood pressure 72 mm[Hg] Manuel Cox MD Work Phone: [facility] 03-02-2023 10:10-0400 Systolic blood pressure 96 mm[Hg] Manuel Cox MD Work Phone: [facility] 03-02-2023 09:35-0400 Body mass index (BMI) [Ratio] 37.11 kg/m2 Manuel Cox MD Work Phone: [facility] 03-02-2023 09:35-0400 Body weight 86.18 kg Manuel Cox MD Work Phone: [facility] 03-02-2023 09:34-0400 Heart rate 98 /min Manuel Cox MD Work Phone: [facility] 03-02-2023 09:34-0400 Respiratory rate 20 /min Manuel Cox MD Work Phone: [facility] 03-02-2023 09:34-0400 SaO2% (BldA) [Mass fraction] 96 % Manuel Cox MD Work Phone: [facility] 03-02-2023 09:33-0400 Body temperature 98.1 [degF] Manuel Cox MD Work Phone: [facility] Encounters Encounter Date Encounter Type Care Provider Facility Start: 03-16-2024 End: 03-16-2024 ambulatory JULIA KELLY Not Available Start: 02-10-2024 End: 02-10-2024 ambulatory PROSPER PHAM Not Available Start: 12-29-2023 End: 12-29-2023 ambulatory PROSPER PHAM Not Available Start: 09-07-2023 End: 09-07-2023 ambulatory OFELIA COSBY Not Available Start: 06-23-2023 End: 06-23-2023 Emergency department patient visit TAMIA WADDELL [facility] Start: 06-23-2023 End: 06-23-2023 Emergency department patient visit Tamia Waddell MD Work Phone: [facility] ED Comment on above: Rhus dermatitis (Aminata cass Dx) Start: 03-02-2023 End: 03-02-2023 Emergency department patient visit MANUEL COX [facility] Start: 03-02-2023 End: 03-02-2023 Emergency department patient visit Manuel Cox MD Work Phone: [facility] ED Comment on above: Viral pharyngitis (P rimary Dx) Start: 11-01-2022 End: 11-01-2022 Emergency department patient visit OFELIA COSBY [facility] Start: 04-08-2022 End: 04-09-[address] OFELIA COSBY Facility:[facility] Start: 12-02-2021 End: 12-02-[address] OFELIA COSBY Facility:[facility] Start: 04-24-2021 End: 04-24-2021 Subsequent hospital visit by physician Ofelia Cosby Work Phone: [facility] Start: 08-13-2020 End: 08-13-2020 Subsequent hospital visit by physician Ofelia Cosby [facility] Start: 12-07-2019 End: 12-07-2019 Subsequent hospital visit by physician Ofelia Cosby [facility] Procedures Date Procedure Procedure Detail Performing Clinician Start: 03-02-2023 [facility] a Manuel Cox MD Work Phone: Start: 04-24-2021 Drug screen quantita tive lithium Karan Okeefe MD Work Phone: Start: 04-24-2021 Electrolyte panel Booker Sky MD Work Phone: Start: 08-13-2020 Basic metabolic pane l calcium total Anne Anaya Work Phone: Start: 08-13-2020 Blood count complete auto&auto difrntl wbc Anne Anaya Work Phone: Start: 08-13-2020 Drug screen quantita tive lithium Anne Anaya Work Phone: Start: 08-13-2020 Hemoglobin glycosylated a1c Anne Anaya Work Phone: Start: 08-13-2020 Lipid panel Anne Artis Work Phone: Start: 12-07-2019 Drug screen quantita tive lithium Karan Okeefe Work Phone: Plan of Treatment Date Care Activity Detail Author Start: 10-31-2032 DTaP/Tdap/Td vaccine (6 - Td or Tdap) DTaP/Tdap/Td vaccine (6 - Td or Tdap) [facility] [employer] Start: 05-19-2023 Influenza vaccination B [facility] Start: 06-19-2021 Influenza vaccination Flu vaccine (# 1) [employer] Work Phone: Start: 06-19-2020 Influenza vaccination Flu vaccine (# 1) [place] Start: 06-19-2019 Influenza vaccination Flu vaccine (# 1) [place] Start: 2015 Screening for malign ant neoplasm of cervix Pap smear [facility] Start: 2012 Hepatitis C screening Hepatitis C sc reen [facility] Start: 2009 HIV screening HIV screen [facility] Start: 2006 COVID-19 Vaccine (1) COVID-[facility]in [facility] Start: 2006 Depression Screen Depression Screen [facility] Start: 2000 Pneumococcal 0-64 ye ars Vaccine (1 - PCV) Pneumococcal 0-64 years Vaccine (1 - PCV) [facility] Start: 1995 Varicella vaccine (1 of 2 - 2-dose childhood series) Varicella vaccine (1 of 2 - 2-dose childhood series) [facility] Start: 1994 COVID-19 Vaccine (#1) COVID-19 Vacci ne (#1) [facility] Immunizations Immunization Date Immunization Notes Care Provider Anali gomez 10-31-2022 tetanus toxoid, redu fredy diphtheria toxoid, and acellular pertussis vaccine, adsorbed Manuel Cox MD Work Phone: [facility] Payers Date Payer Category Payer Medicaid [id number] 2018 Unknown BCBS [place] P PO xxxxxxxxxxxx 2018-Present [address] [place] [address] xxxxxxxxxxxx [id number] 2018 Unknown [employer] xxxxxxxxxxx 2018-Present [phone] [address] [place] [address] xxxxxxxxxxx [id number] 2018 Unknown [employer] [id number] 2018-Present [phone] [address] [place] [address] [id number] 1994 Unknown [id number] 1994 Unknown [id number] 1994 Unknown [id number] 1994 Unknown [id number] 1994 Unknown [id number] [id number] 1994 Unknown [id number] 9 1994 Unknown [id number] 9 1994 Unknown [id number] [id number] 9 1994 Unknown [id number] 9 1959 Unknown [id number] Social History Date Type Detail Facility Start: 01-24-2015 Tobacco smoking stat NHIS Current every day smoker [facility] History of tobacco use Cigarette Smoker [place], [place] Start: 01-24-2015 Cigarettes smoked current (pack per day) - Reported [place], [place] Start: 01-24-2015 End: 06-23-2023 Alcohol intake Current non-drinker of alcohol (finding) [place], [place] Start: 1994 Sex Assigned At Not on file [place], [place] Hospital Discharge instructions 06-23-2023 Discharge InstructionsAttachments Note Date & Type Note Facility 06-23-2023 Hospital Discharg e instructions Tamia Waddell MD - 06/23/2023 8:59 AM EDT Take prednisone taper as directed until complete. Hydroxyzine as needed and directed for itching. Hydroxyzine makes you too sleepy may replace this with an odub-pir-rbgoxkt antihistamine such as Claritin Zyrtec or similar. Medical attention immediately should he develop any worsening rash, any fevers chills, any pain, any signs of secondary infection or any other acute concerns The following attachments cannot be sent through Care Everywhere.Poison Tiarra - Free Soil - and Sumac (Bermudian)documented in this encounter [facility] Discharge instructions 03-02-2023 Discharge InstructionsAttachments Note Date & Type Note Facility 03-02-2023 Hospital Discharg e instructions Manuel Cox MD - 03/02/2023 10:49 AM EDT You may take Tylenol 1000mg over 8 hours for pain control as well as the ibuprofen prescribed to you. You may take Cepacol [id number] to help soothe your throat as well as a warm tea with honey to help soothe the sore throat. Follow-up with your primary care or family doctor in the next 2 to 3 days for reevaluation peer return to the emergency department if you have any new or worsening symptoms. The following attachments cannot be sent through Care Everywhere.Sore Throat (Bermudian)documented in this encounter [employer] Phone: Evaluation note Note Date & Type Note Facility Evaluation note Diagnosis Viral pharyngitis- Primary Acute pharyngitis documented in this encounter [employer] Phone: Evaluation note Note Date & Type Note Facility Evaluation note Diagnosis Rhus dermatitis- Primary Contact dermatitis and other eczema due to plants (except food) documented in this encounter [employer] Advance Directives No Advanced Directives Records FoundDocuments on File Type Date Recorded Patient Manager Database Administration Expl anation Advance Directives and Living Will Power of Control Clerk Auditing Documents on File Type Date Recorded Patient Manager Database Administration Expl anation ACP-Advance Directive ACP-Power of Control Clerk Auditing Summary Purpose Family History No Family History Records FoundNo Family History Records FoundNo Family History Records FoundNo Family History Records FoundNo Family History Records Found Additional Source Comments INFORMATION SOURCE (unrecogn ized section and content) DATE CREATED AUTHOR 10/27/2021 [facility] dical Specialist DATE CREATED AUTHOR AUTHOR'S ORGANIZ ATION 11/12/2021 [facility] DATE CREATED AUTHOR AUTHOR'S ORGANIZ ATION 04/11/2022 [facility] DATE CREATED AUTHOR AUTHOR'S ORGANIZ ATION 06/23/2023 [facility] DATE CREATED AUTHOR AUTHOR'S ORGANIZ ATION 03/17/2024 [facility] dical Specialists EPIC Reason for Visit (unrecogniz ed section and content) Reason Comments Pharyngitis Sore throat since Fr iday night. Difficulty swallowing. Fever, chills, body aches. Reason Comments Rash Patient complains of ongoing rash on abdomin. Patient has history of shingles and was recently seen at Urgent Care. Specialty Diagnoses / Procedures Referred By Isael bazzi Referred To Contact Procedures [facility] [address] [place] [address] [facility] [address] [place] [address] Referral ID Status Reason Start Date Expiration Date Visits Re quested Visits Authorized [id number] 1 1 Ordered Prescriptions (unrec ognized section and content) Prescription Sig Dispensed Refills Start Date End Da te ibuprofen (IBU) 600 MG tablet Take 1 tablet by mouth every 6 hours as needed for Pain 120 tablet 0 03/02/2023 Prescription Sig Dispensed Refills Start Date End Da te hydrOXYzine HCl (ATARAX) 25 MG tablet Take 1 tablet by mouth every 8 hours as needed for Itching 20 tablet 0 06/23/2023 07/03/2023 Scheduled Active and Recently Administ ered Medications (unrecognized section and content) Medication Order 02/28/2023 03/01/2023 03/02/2023 ketorolac (TORADOL) injection 30 mg (COMPLETED) 30 mg, IntraMUSCular, ONCE, 1 dose, On 03/02/23 at 1030, Do not administer for more than 5 days. 1021 (Given - Provid er: Tamia Ellis RN) Care Teams (unrecognized sec tion and content) Engineering Instructor Relationship Specialty Start Date End Date Ofelia Cosby MD [address] [place] [address] PCP - General 01/24/15 Engineering Instructor Relationship Specialty Start Date End Date Ofelia Cosby MD [address] [place] [address] PCP - General 01/24/15 FOR RECORDS PERTAINING TO PATIENTS WHO ARE OR HAVE BEEN ENROLLED IN A CHEMICAL DEPENDENCY/SUBSTANCEABUSE PROGRAM, SOME INFORMATION MAY BE OMITTED. This clinical summary was aggregated from multiple sources. Caution should be exercised in using it in the provision of clinical care. This summary normalizes information from multiple sources, and as a consequence, information in this document may materially change the coding, format and clinical context of patient data. In addition, data may be omitted in some cases. CLINICAL DECISIONS SHOULD BE BASED ON THE PRIMARY CLINICAL RECORDS. [facility]. provides no warranty or guarantee of the accuracy or completeness of information in this document.
[2024-03-29 07:14] LABS: Cannabinoid Screen Urine POSITIVE (NEGATIVE)
[2024-03-29 07:15] LABS: Amphetamine Screen Urine NEGATIVE (NEGATIVE); Barbiturates Screen Urine NEGATIVE (NEGATIVE); Benzodiazepines Screen Urine NEGATIVE (NEGATIVE); Buprenorphine Screen Urine NEGATIVE (NEGATIVE); Cocaine Screen Urine NEGATIVE (NEGATIVE); Methadone Screen Urine NEGATIVE (NEGATIVE); Methamphetamines Screen Urine NEGATIVE (NEGATIVE); Opiate Screen Urine NEGATIVE (NEGATIVE); Oxycodone Screen Urine NEGATIVE (NEGATIVE); Phencyclidine Screen Urine NEGATIVE (NEGATIVE); Tricyclic Antidepressant Urine NEGATIVE (NEGATIVE)
[2024-03-29 07:24] VITALS: BP 124/86; PULSE 77; TEMP 35.9; O2SAT 97; BMI 37.3
--- NOTE | 2024-03-29 07:35 | PC.NURSE ---
No drainage from pink rash on back; states she was in poison dore[place]
[2024-03-29] MEDS: LACTATED RINGER'S SOLUTION 1,000 ML 50 ML IV (07:36)
[2024-03-29 08:36] VITALS: BP 97/51; PULSE 72; O2SAT 97
--- NOTE | 2024-03-29 08:37 | W.PM.PROCNOT ---
Date of procedure: 03/29/24 Pre-op diagnosis: GI bleeding Post-op diagnosis: other (sub centimeter pre-pyloric ulcer well healed ) Procedure: Procedure: Esophagogastroduodenoscopy with biopsy ANES:? MAC Complications:? None EBL:? None Finding: sub centimeter pre-pyloric ulcer well healed PROCEDURE: The patient was taken to the endoscopy suite and under monitored conditions was given adequate anesthesia until the patient was sedated.? The endoscope was passed easily into the oropharynx and into the upper esophagus.? The esophagus was completely normal and the z-line was at 33 cm.? The scope entered the stomach easily which distended well.? The scope was passed through the pylorus and the duodenal bulb and 1st portion of the duodenum were within normal limits.? No abnormalities identified.? The body of the stomach was carefully inspected and there were no abnormalities identified.??? The scope was retroflexed and no there was no evidence of a hiatal hernia.? There was no gastritis in the antrum of the stomach however there was one sub centimeter are in the pre-pyloric region of healed ulcer. Biopsies were taken in the antrum for H. Pylori testing.? The patient tolerated the procedure well and was positioned for c-scope next. Previous colonoscopy: 2020 procedure: diagnostic colonoscopy The patient was given IV conscious sedation.? The patient's SPO2 remained above 90% throughout the procedure. The colonoscope was inserted per rectum and advanced under direct vision to the cecum without difficulty.? The prep was good.? Findings: Terminal ileum os: normal Cecum/Ascending colon: normal Transverse colon: normal Descending/Sigmoid colon: normal Rectum/Anus: examined in normal and retroflexed positions and was normal Withdrawal Time was (minutes): 8 The colon was decompressed and the scope was removed.? The patient tolerated the procedure well. Recommendations/Plan: 1.? Lifestyle and dietary modifications as discussed 2.? F/U H. pylori Biopsies 3.? F/U in 1-2 weeks in clinic 4.? Discussed with the family Anesthesia: MAC Surgeon: Ben Light Estimated blood loss (mL): 1 Pathology: other (h. pylori biopsies ) Condition: stable Disposition: PACU
[2024-03-29 08:44] VITALS: BP 125/93; PULSE 78; O2SAT 97
--- NOTE | 2024-03-29 08:57 | PC.NURSE ---
Wakes up coughing and states, I need my inhaler. Mother at bedside and hands her purse to her; states that she forgot her inhaler. Anesthesia informed and order received for a breathing treatment. HOB elevated.
[2024-03-29] MEDS: IPRATROPIUM/ALBUTEROL SULFATE 3 ML AMPUL.NEB IH (08:58)
[2024-03-29 09:00] VITALS: PULSE 65; O2SAT 98
--- NOTE | 2024-03-29 09:00 | PC.NURSE ---
Calm; states she's breathing better.
--- NOTE | 2024-03-29 09:02 | PC.NURSE ---
Being given breathing treatment by cardiopulmonary
[2024-03-29 09:20] VITALS: BP 132/95; PULSE 83; O2SAT 97
== END 2024-03-29 09:27 | disposition home or self-care (01) ==
PROVIDERS: Visit Provider Surgery
PROC: (CPT 813; principal; 2024-03-29 08:00)
DX: K92.2 Gastrointestinal hemorrhage, unspecified (principal); K22.10 Ulcer of esophagus without bleeding; R10.9 Unspecified abdominal pain; R19.4 Change in bowel habit; F17.210 Nicotine dependence, cigarettes, uncomplicated; Z90.710 Acquired absence of both cervix and uterus; K58.9 Irritable bowel syndrome, unspecified; K92.1 Melena; Z98.51 Tubal ligation status
CPT/HCPCS: 43239; 45378; 80307; 88305; 94640; 99406; J1110; J2704; J7620